=== PATIENT | female | born 1965 | race Caucasian/White ===

== ENCOUNTER 2019-11-19 12:14 | Emergency (ER) | payer BC, OTHER, SELFPAY ==
[~2019-11-19] VITALS: Ht 162.6 cm; Wt 74.8 kg
[2019-11-19 12:15] VITALS: BP 169/83
--- NOTE | 2019-11-19 12:49 | NUR ---
Patient discharged to home in stable condition. Written and verbal after care instructions given. Patient verbalizes understanding of instruction. Pt ambulatory with a steady gait
== END 2019-11-19 12:50 | disposition home or self-care (01) ==
LOC: ER 12:14
DX: Z03.818 Encounter for observation for suspected exposure to other biological agents ruled out (principal); I10 Essential (primary) hypertension; I34.1 Nonrheumatic mitral (valve) prolapse
CPT/HCPCS: U0003-CS

== ENCOUNTER 2019-12-19 11:44 | Emergency (ER) | payer OTHER, SELFPAY ==
[~2019-12-19] VITALS: Ht 162.6 cm; Wt 69.9 kg
[2019-12-19 12:03] VITALS: BP 166/87
--- NOTE | 2019-12-19 13:19 | NUR ---
Patient discharged to home in stable condition. Written and verbal after care instructions given. Patient verbalizes understanding of instruction.
--- NOTE | 2019-12-23 03:03 | NUR ---
CLS FROM LAB CALLED, COVID 19 RESULT IS NEGATIVE.
== END 2019-12-19 13:19 | disposition home or self-care (01) ==
LOC: ER 11:46
DX: Z03.818 Encounter for observation for suspected exposure to other biological agents ruled out (principal); I34.1 Nonrheumatic mitral (valve) prolapse; G47.30 Sleep apnea, unspecified; G47.00 Insomnia, unspecified
CPT/HCPCS: 99283; C9803; U0003

== ENCOUNTER 2020-04-26 09:03 | Emergency (ER) | payer OTHER ==
[~2020-04-26] VITALS: Ht 162.6 cm; Wt 74.8 kg
[2020-04-26 09:11] VITALS: BP 136/80
--- NOTE | 2020-04-26 09:25 | NUR ---
covid 19 testing swab collected and sent to lab
--- NOTE | 2020-04-26 09:26 | NUR ---
Patient discharged to home in stable condition. Written and verbal after care instructions given. Patient verbalizes understanding of instruction.
== END 2020-04-26 09:25 | disposition home or self-care (01) ==
LOC: ER 09:04
DX: Z20.828 Contact with and (suspected) exposure to other viral communicable diseases (principal); I10 Essential (primary) hypertension; I34.1 Nonrheumatic mitral (valve) prolapse; Z90.49 Acquired absence of other specified parts of digestive tract; G47.30 Sleep apnea, unspecified; G47.00 Insomnia, unspecified
CPT/HCPCS: 99283; C9803; U0003

== ENCOUNTER 2025-01-09 08:57 | Emergency (ER) | payer BC, OTHER ==
[~2025-01-09] VITALS: Ht 162.6 cm; Wt 79.4 kg
[2025-01-09 09:21] LABS: PLATELET COUNT (AUTO) 217 K/uL (150-450); RED BLOOD CELL COUNT(AUTO) 5.30 MIL/uL (4.0-5.2); RED CELL DISTRIBUTION WIDTH 13.8 % (11.5-15.0); WHITE BLOOD COUNT (AUTO) 5.8 K/uL (4.3-11.0)
[2025-01-09 09:34] LABS: CALCIUM, SERUM 8.9 mg/dL (8.5-10.1); CREATININE 0.5 mg/dL (0.6-1.3); SODIUM SERUM 138 mmol/L (136-145); UREA NITROGEN, BLOOD 15 mg/dL (7-18)
[2025-01-09 09:46] LABS: ASPARTATE AMINOTRANSFERASE 50 U/L (15-37); NT-PRO BNP 24 pg/mL (0-125); TOTAL PROTEIN, SERUM 8.2 g/dL (6.4-8.2)
[2025-01-09 11:10] VITALS: BP 138/73; TEMP 97.9; O2SAT 98
== END 2025-01-09 11:13 | disposition home or self-care (01) ==
LOC: ER 09:09
DX: R00.2 Palpitations (principal); E11.9 Type 2 diabetes mellitus without complications; G47.30 Sleep apnea, unspecified; I10 Essential (primary) hypertension; R07.9 Chest pain, unspecified; Z79.01 Long term (current) use of anticoagulants; Z88.5 Allergy status to narcotic agent; Z88.8 Allergy status to other drugs, medicaments and biological substances; Z90.49 Acquired absence of other specified parts of digestive tract; Z86.79 Personal history of other diseases of the circulatory system
CPT/HCPCS: 36415; 71045-TC; 80048-TC; 80076-TC; 83735-TC; 83880; 84443-TC; 84484-TC; 85025-TC